=== PATIENT | male | born 1990 | race Caucasian/White ===

== ENCOUNTER 2017-02-14 16:57 | Emergency (ER) | payer SELFPAY ==
[2017-02-14] MEDS ORDERED: SODIUM CHLORIDE 0.9% (FLUSH) 10 ML SYG IV PRN (17:38)
[2017-02-14] MEDS ORDERED: SODIUM CHLORIDE 0.9% 1000ML 1,000 ML IVS PRN (17:38)
[2017-02-14] MEDS ORDERED: SODIUM CHLORIDE 0.9% 1000ML 1,000 ML IVS ONE (17:40)
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
[2017-02-14 21:30] VITALS: TEMP 97
[2017-02-14 21:31] VITALS: BP 142/68; O2SAT 97
== END 2017-02-14 21:50 | disposition short-term general hospital (02) ==
LOC: ER 16:57
DX: S22.22XA Fracture of body of sternum, initial encounter for closed fracture (principal); S27.321A Contusion of lung, unilateral, initial encounter; F12.10 Cannabis abuse, uncomplicated; F15.10 Other stimulant abuse, uncomplicated; Z87.891 Personal history of nicotine dependence; V47.5XXA Car driver injured in collision with fixed or stationary object in traffic accident, initial encounter; Y92.410 Unspecified street and highway as the place of occurrence of the external cause
CPT/HCPCS: 36415; 70450; 71101; 71260; 72125; 73000; 73030; 74177; 80053; 80307; 80320; 81001; 82150; 82550; 82553; 84484; 85025; 85610; 85730; 93005; 94760; J7030

== ENCOUNTER 2017-04-23 15:56 | Emergency (ER) | payer SELFPAY ==
[2017-04-23 16:10] VITALS: BP 118/77; TEMP 98.7; O2SAT 96
[2017-04-23] MEDS ORDERED: SULFA/TRIMETH 800/160 (DS) TAB 1 EA TAB PO ONE (16:14)
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
[2017-04-23] MEDS ORDERED: POVIDONE IODINE 10 % 15 ML UD TOP ONE (16:21)
== END 2017-04-23 16:35 | disposition home or self-care (01) ==
LOC: ER 15:56
DX: S81.801A Unspecified open wound, right lower leg, initial encounter (principal); L03.115 Cellulitis of right lower limb; Z87.891 Personal history of nicotine dependence

== ENCOUNTER 2018-01-20 18:29 | Emergency (ER) | payer SELFPAY ==
[2018-01-20 18:59] VITALS: TEMP 99; O2SAT 98
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
[2018-01-20 19:42] VITALS: BP 125/52
== END 2018-01-20 19:30 | disposition home or self-care (01) ==
LOC: ER 18:29
DX: Z02.89 Encounter for other administrative examinations (principal); S31.030A Puncture wound without foreign body of lower back and pelvis without penetration into retroperitoneum, initial encounter; Y35.893A Legal intervention involving other specified means, suspect injured, initial encounter; Y92.9 Unspecified place or not applicable

== ENCOUNTER 2018-07-18 09:20 | Emergency (ER) | payer SELFPAY ==
[2018-07-18 09:32] VITALS: BP 129/77; TEMP 97.8; O2SAT 97
[2018-07-18] MEDS ORDERED: DEXAMETHASONE INJ 10 MG/ML VIAL IM ONE (09:50)
--- NOTE | 2018-07-18 09:54 | ED.PDOC ---
History of Present Illness - General Chief Complaint: ENT Problem Stated Complaint: swollen uvula Time Seen by Provider: 07/18/18 09:50 Source: patient Exam Limitations: no limitations - History of Present Illness Initial Comments: PT C/O 4-5 DAY HX OF SWOLLEN UVULA WHICH HAS GOTTEN WORSE TODAY. WORSE IN THE AM BUT BETTER BY AFTERNOON. THIS AM IS MORE SWOLLEN. NO SOB SOME DIFFICULTY SWALLOWING. EENT Location: throat Prearrival Treatment: no prearrival treatment Improving Factors: nothing Worsening Factors: nothing Allergies/Adverse Reactions: Allergies NO KNOWN ALLERGY Allergy (Verified 01/08/16 23:09) Home Medications: Ambulatory Orders Depakote 07/18/18 Review of Systems - Review of Systems Constitutional: Denies: chills, fever EENTM: States: ear pain Respiratory: Denies: cough, short of breath Cardiology: Denies: chest pain, palpitations Gastrointestinal/Abdominal: Denies: nausea, vomiting Skin: States: no symptoms reported Past Medical History (General) - Patient Medical History Hx Seizures: No Hx Stroke: No Hx Dementia: No Hx Asthma: No Hx of COPD: No Hx Cardiac Disorders: No Hx Congestive Heart Failure: No Hx Pacemaker: No Hx Hypertension: No Hx Thyroid Disease: No Hx Diabetes: No Hx Gastroesophageal Reflux: No Hx Renal Disease: No Hx Cancer: No Hx of HIV: No Hx Hepatitis C: No Hx MRSA: No Surgical History: no surgical history - Vaccination History Hx Tetanus, Diphtheria Vaccination: No Hx Influenza Vaccination: No Hx Pneumococcal Vaccination: No - Social History Hx Tobacco Use: Yes Hx Chewing Tobacco Use: No Hx Alcohol Use: No Hx Substance Use: No Hx Substance Use Treatment: No Hx Depression: No Hx Physical Abuse: No Hx Emotional Abuse: No Hx Suspected Abuse: No - Female History Patient : No Family Medical History - Family History Father Family History: Unknown Physical Exam - Physical Exam General Appearance: Alert, No apparent distress Eye Exam: bilateral normal Ear Exam: bilateral ear: TM normal Nasal Exam: normal inspection - MM MOIST, POST PHARYNGEAL ERYTHEMA, NO EXUDATE, UVULA SWOLLEN, ERYTHEMATOUS, AIRWAY WIDELY PATENT. Neck: non-tender, full range of motion, supple Cardiovascular/Respiratory: regular rate, rhythm, no M/R/G, normal breath sounds, no respiratory distress - SATS 94% ON RA (NL) Abdominal Exam: non-tender, no organomegaly Neurologic: alert, normal mood/affect Skin Exam: normal color, warm/dry Departure - Departure Clinical Impression: Uvulitis Time of Disposition: 10:03 Disposition: Discharge to Home or Self Care Condition: Good Departure Forms: ED Discharge - Pt. Copy, Patient Portal Self Enrollment Instructions: Viral Pharyngitis Home Medications: Ambulatory Orders Depakote 07/18/18
== END 2018-07-18 10:11 | disposition home or self-care (01) ==
LOC: ER 09:20
DX: K12.2 Cellulitis and abscess of mouth (principal); Z87.891 Personal history of nicotine dependence
CPT/HCPCS: 87070; 87880; J1100

== ENCOUNTER 2018-10-12 08:45 | Emergency (ER) | payer SELFPAY ==
[2018-10-12 09:03] VITALS: BP 148/73; TEMP 97.6; O2SAT 99
--- NOTE | 2018-10-12 09:17 | ED.PDOC ---
History of Present Illness - General Chief Complaint: Dental/Mouth Stated Complaint: L jaw discomfort Time Seen by Provider: 10/12/18 09:10 Source: patient, RN notes reviewed, Vital Signs reviewed Exam Limitations: other - says it hurts too much to talk though he will do it when distracted - History of Present Illness Timing/Duration: gradual Severity: moderate EENT Location: dental Prearrival Treatment: no prearrival treatment Improving Factors: nothing Worsening Factors: eating Allergies/Adverse Reactions: Allergies NO KNOWN ALLERGY Allergy (Verified 01/08/16 23:09) Home Medications: Ambulatory Orders Depakote 1 each PO DAILY 07/18/18 Penicillin V Potassium 500 mg PO Q6H 7 Days #42 tab 10/12/18 Tramadol HCl 100 mg PO Q8H PRN 3 Days #18 tab 10/12/18 Review of Systems - Review of Systems Constitutional: States: no symptoms reported EENTM: States: see HPI Respiratory: States: no symptoms reported Gastrointestinal/Abdominal: States: no symptoms reported Skin: States: no symptoms reported Neurological: States: no symptoms reported Past Medical History (General) - Patient Medical History Hx Seizures: No Hx Stroke: No Hx Dementia: No Hx Asthma: No Hx of COPD: No Hx Cardiac Disorders: No Hx Congestive Heart Failure: No Hx Pacemaker: No Hx Hypertension: No Hx Thyroid Disease: No Hx Diabetes: No Hx Gastroesophageal Reflux: No Hx Renal Disease: No Hx Cancer: No Hx of HIV: No Hx Hepatitis C: No Hx MRSA: No Surgical History: no surgical history - Vaccination History Hx Tetanus, Diphtheria Vaccination: No Hx Influenza Vaccination: No Hx Pneumococcal Vaccination: No - Social History Hx Tobacco Use: Yes Hx Chewing Tobacco Use: No Hx Alcohol Use: Yes Hx Substance Use: No Hx Substance Use Treatment: No Hx Depression: No Hx Physical Abuse: No Hx Emotional Abuse: No Hx Suspected Abuse: No - Female History Patient : No Family Medical History - Family History Father Family History: Unknown Physical Exam - Physical Exam General Appearance: Alert, Comfortable, No apparent distress Eye Exam: bilateral normal Nasal Exam: normal inspection Throat Exam: pharynx normal, dental tenderness, mandibular swelling Neck: full range of motion, supple, normal inspection Cardiovascular/Respiratory: no respiratory distress Neurologic: no motor/sensory deficits, alert, normal mood/affect, oriented x 3 Skin Exam: normal color, warm/dry Departure - Departure Clinical Impression: Dental caries Time of Disposition: :15 Disposition: Discharge to Home or Self Care Condition: Good Departure Forms: ED Discharge - Pt. Copy, Patient Portal Self Enrollment Instructions: DI for Dental Pain Prescriptions: Penicillin V Potassium 500 mg PO Q6H 7 Days #42 tab Tramadol HCl 100 mg PO Q8H PRN 3 Days #18 tab PRN Reason: Moderate Pain Home Medications: Ambulatory Orders Depakote 1 each PO DAILY 07/18/18 Penicillin V Potassium 500 mg PO Q6H 7 Days #42 tab 10/12/18 Tramadol HCl 100 mg PO Q8H PRN 3 Days #18 tab 10/12/18 Additional Instructions: PEGGY Andrews [phone] [facility] [phone]
== END 2018-10-12 09:25 | disposition home or self-care (01) ==
LOC: ER 08:45
DX: K02.9 Dental caries, unspecified (principal); Z79.899 Other long term (current) drug therapy; Z87.891 Personal history of nicotine dependence